=== PATIENT | male | born 1970 | race Caucasian/White ===

== ENCOUNTER 2018-12-14 08:53 | Emergency (ER) | payer BC, OTHER ==
[2018-12-14] MEDS ORDERED: Sodium Chloride 0.9% 1,000 ML IV STA (09:20)
[2018-12-14] MEDS ORDERED: Ondansetron 4 MG/2 ML SDV IVPUSH ONE (09:20)
[2018-12-14] MEDS ORDERED: Sodium Chloride 0.9% 10 ML Syringe FLUSH PRN ×2 (09:20→10:53)
[2018-12-14] MEDS ORDERED: Famotidine 20 MG/2 ML SDV IVPUSH ONE (09:22)
--- NOTE | 2018-12-14 09:54 | CR ---
Chest: Portable view of the chest was obtained. Comparison: Prior chest x-ray of 10/13/16. Heart size and mediastinum are within normal limits for portable technique. Lungs are clear with no acute parenchymal change. Nodular type density is noted within the right upper lung believed to represent slightly prominent costochondral calcification within the first rib. Impression: 1. Nothing acute is appreciated. Diagnostic code #2
[2018-12-14] MEDS ORDERED: Iopamidol 612 MG/ML 100 ML Bottle IVPUSH ONE (10:53)
[2018-12-14] MEDS ORDERED: Diatrizoate Meglumine/Diatrizoate Sodium 37% 120 ML Bottle PO ONE (10:53)
--- NOTE | 2018-12-14 11:42 | CT ---
CT abdomen and pelvis Technique: Multiple axial sections were obtained from above the dome of the diaphragm inferiorly through the pubic symphysis. Intravenous and oral contrast was utilized. Delayed images were obtained through the bladder. Comparison: No prior abdominal imaging. Findings: Multiple loops of wall thickening are seen within mid to distal small bowel. This does not involve the terminal ileum. Small portion of the visualized lung bases are clear. Adrenal glands show no nodule. Pancreas is within normal limits. Small hiatal hernia is seen. Kidneys show symmetric contrast enhancement without hydronephrosis or mass. Pancreas appears normal. Gallbladder contains no calcified gallstones. Aorta shows slight atherosclerotic change without aneurysm. No retroperitoneal adenopathy or mesenteric abnormalities are seen. No pelvic mass or adenopathy is seen. Appendix is not visualized with certainty. Bone window settings were reviewed which show mild scattered degenerative change. Delayed images show contrast within the distal ureters and bladder. Impression: 1. Multiple loops of small bowel showing wall thickening compatible with nonspecific enteritis. 2. Other incidental findings as noted above. Diagnostic code #3
[2018-12-14] MEDS ORDERED: Sodium Chloride 0.9% 1,000 ML ONE (11:53)
[2018-12-14] MEDS ORDERED: Sodium Chloride 0.9% 1,000 ML IV ONE (11:55)
--- NOTE | 2018-12-14 12:05 | EDM.PDOC ---
ED HPI GENERAL MEDICAL PROBLEM - General Chief Complaint: Abdominal Pain Stated Complaint: SOB/SEVERE STOMACH PAIN Time Seen by Provider: 12/14/18 09:20 Source of Information: Reports: Patient History Limitations: Reports: No Limitations - History of Present Illness INITIAL COMMENTS - FREE TEXT/NARRATIVE: The patient presents with generalized abdominal pain, nausea, vomiting and diarrhea. This all started about 4 days ago. He had diarrhea, vomiting and developed abdominal pain. He has not had any more bowel movements and no vomiting but he still has the severe abdominal pain. He has no fever, chills or cough. He does have some shortness of breath and he feels very weak. He has no chest pain. He still has a gallbladder. He noticed no blood in his stool or emesis. Onset: Gradual Duration: Day(s): (4) Location: Reports: Abdomen Quality: Reports: Sharp Severity: Severe Improves with: Reports: None Worsens with: Reports: None Associated Symptoms: Reports: Nausea/Vomiting, Shortness of Breath. Denies: Chest Pain, Cough, Fever/Chills, Headaches Abdominal Pain Score (Numeric/FACES): 9 - Related Data Allergies Allergy/AdvReac Type Severity Reaction Status Date / Time No Known Allergies Allergy Verified 12/14/18 09:21 Home Meds: Home Meds Azithromycin [Zithromax] 500 mg PO DAILY #6 tab 12/14/18 [Rx] Lisinopril/Hydrochlorothiazide [Lisinopril-Hctz 20-12.5 mg Tab] 12.5 - 20 mg PO DAILY 12/14/18 [History] Ondansetron [Zofran ODT] 4 mg PO Q6H PRN #20 tab.dis 12/14/18 [Rx] Past Medical History HEENT History: Reports: Impaired Vision Other HEENT History: wears eyeglasses. Cardiovascular History: Reports: Hypertension Respiratory History: Reports: Bronchitis, Recurrent Gastrointestinal History: Reports: Chronic Diarrhea, Other (See Below) Other Gastrointestinal History: has had blood in stools. Pt denies Hx of GERD, but listed on [facility] chart. Hematochezia. Musculoskeletal History: Reports: Fracture Psychiatric History: Reports: ADHD, Anxiety Hematologic History: Reports: Anemia - Infectious Disease History Infectious Disease History: Reports: Chicken Pox, Measles - Past Surgical History HEENT Surgical History: Reports: Tonsillectomy GI Surgical History: Reports: Appendectomy, Colonoscopy Musculoskeletal Surgical History: Reports: Other (See Below) Other Musculoskeletal Surgeries/Procedures:: wrist surgery. Social & Family History - Family History Family Medical History: Noncontributory - Tobacco Use Smoking Status *Q: Never Smoker Second Hand Smoke Exposure: No - Caffeine Use Caffeine Use: Reports: None - Recreational Drug Use Recreational Drug Use: No ED ROS GENERAL - Review of Systems Review Of Systems: See Below Constitutional: Reports: Malaise, Weakness, Fatigue. Denies: Fever, Chills HEENT: Reports: No Symptoms Respiratory: Reports: Shortness of Breath. Denies: Cough Cardiovascular: Reports: No Symptoms Endocrine: Reports: No Symptoms GI/Abdominal: Reports: Abdominal Pain, Diarrhea, Nausea, Vomiting : Reports: No Symptoms Musculoskeletal: Reports: No Symptoms ED EXAM, GI/ABD - Physical Exam Exam: See Below Exam Limited By: No Limitations General Appearance: Alert, No Apparent Distress Ears: Normal External Exam Nose: Normal Inspection Head: Atraumatic, Normocephalic Neck: Normal Inspection Respiratory/Chest: No Respiratory Distress, Lungs Clear, Normal Breath Sounds Cardiovascular: Regular Rate, Rhythm, No Edema, No Murmur GI/Abdominal Exam: Soft, No Organomegaly, No Mass, Tender (Moderate generalized tenderness) Course - Vital Signs Last Recorded V/S: Last Vital Signs Temp 98.1 F 12/14/18 09:05 Pulse 78 12/14/18 09:05 Resp 20 12/14/18 09:05 BP 136/97 H 12/14/18 09:05 Pulse Ox 98 12/14/18 09:05 Orthostatic Blood Pressure [ 120/94 Standing] Orthostatic Blood Pressure [ 136/98 Sitting] Orthostatic Blood Pressure [ 136/97 Supine] - Orders/Labs/Meds Orders: Active Orders 24 hr Category Date Time Status EKG Documentation Completion [RC] ASDIRECTED Care 12/14/18 10:09 Active Peripheral IV Care [RC] . DIRECTED Care 12/14/18 09:20 Active Sodium Chloride 0.9% [Saline Flush] Med 12/14/18 09:20 Active 10 ml FLUSH ASDIRECTED PRN Sodium Chloride 0.9% [Saline Flush] Med 12/14/18 10:53 Active 10 ml FLUSH ONETIME PRN ED Antiemetic Medication Reflex [OM.PC] Stat Oth 12/14/18 09:20 Ordered Peripheral IV Insertion Adult [OM.PC] Stat Oth 12/14/18 09:20 Ordered EKG 12 Lead [EK] Stat Ther 12/14/18 10:09 Ordered Medication Orders Sodium Chloride (Saline Flush) 10 ml FLUSH ASDIRECTED PRN PRN Reason: Keep Vein Open Last Admin: 12/14/18 09:10 Dose: 10 ml Sodium Chloride (Saline Flush) 10 ml FLUSH ONETIME PRN PRN Reason: IV FLUSH Last Admin: 12/14/18 10:54 Dose: 10 ml Labs: Laboratory Tests 12/14/18 12/14/18 12/14/18 Range/Units 09:10 09:10 13:20 WBC 5.77 (4.23-9.07) K/mm3 RBC 5.63 (4.63-6.08) M/mm3 Hgb 16.2 (13.7-17.5) gm/L Hct 46.7 (40.1-51.0) % MCV 82.9 (79.0-92.2) fl MCH 28.8 (25.7-32.2) pg MCHC 34.7 (32.2-35.5) g/dl RDW Std Deviation 40.6 (35.1-43.9) fL Plt Count 248 (163-337) K/mm3 MPV 10.2 (9.4-12.3) fl Neut % (Auto) 62.4 (34.0-67.9) % Lymph % (Auto) 14.4 L (21.8-53.1) % [place] % (Auto) 21.3 H (5.3-12.2) % Eos % (Auto) 1.4 (0.8-7.0) Baso % (Auto) 0.2 (0.1-1.2) % Neut # (Auto) 3.60 (1.78-5.38) K/mm3 Lymph # (Auto) 0.83 L (1.32-3.57) K/mm3 [place] # (Auto) 1.23 H (0.30-0.82) K/mm3 Eos # (Auto) 0.08 (0.04-0.54) K/mm3 Baso # (Auto) 0.01 (0.01-0.08) K/mm3 Manual Slide Review Abnormal smear Sodium 134 L (136-145) mEq/L Potassium 3.6 (3.5-5.1) mEq/L Chloride 98 (98-107) mEq/L Carbon Dioxide 27 (21-32) mEq/L Anion Gap 12.6 (5-15) BUN 25 H (7-18) mg/dL Creatinine 1.1 (0.7-1.3) mg/dL Est Cr Clr Drug Dosing 86.52 mL/min Estimated GFR (MDRD) > 60 (>60) mL/min BUN/Creatinine Ratio 22.7 H (14-18) Glucose 105 (74-106) mg/dL Calcium 8.7 (8.5-10.1) mg/dL Total Bilirubin 0.5 (0.2-1.0) mg/dL AST 17 (15-37) U/L ALT 20 (16-63) U/L Alkaline Phosphatase 79 (46-116) U/L Troponin I < 0.017 (0.00-0.056) ng/mL Total Protein 7.7 (6.4-8.2) g/dl Albumin 3.3 L (3.4-5.0) g/dl Globulin 4.4 gm/dL Albumin/Globulin Ratio 0.8 L (1-2) Lipase 162 (73-393) U/L Urine Color Yellow (Yellow) Urine Appearance Clear (Clear) Urine pH 6.5 (5.0-8.0) Ur Specific [place] 1.010 (1.005-1.030) Urine Protein Negative (Negative) Urine Glucose (UA) Negative (Negative) Urine Ketones 2+ H (Negative) Urine Occult Blood Trace-intact H (Negative) Urine Nitrite Negative (Negative) Urine Bilirubin Negative (Negative) Urine Urobilinogen 0.2 (0.2-1.0) Ur Leukocyte Esterase Negative (Negative) Urine RBC 0-5 (0-5) /hpf Urine WBC Not seen (0-5) /hpf Ur Epithelial Cells Not seen (0-5) /hpf Urine Bacteria Rare (FEW) /hpf Urine Mucus Not seen (FEW) /hpf Meds: Medications Generic Name Dose Route Start Last Admin Trade Name Freq PRN Reason Stop Dose Admin Sodium Chloride 10 ml 12/14/18 09:20 12/14/18 09:10 Saline Flush FLUSH 10 ml ASDIRECTED PRN Administration Keep Vein Open Sodium Chloride 10 ml 12/14/18 10:53 12/14/18 10:54 Saline Flush FLUSH 10 ml ONETIME PRN Administration IV FLUSH Discontinued Medications Generic Name Dose Route Start Last Admin Trade Name Matthew PRN Reason Stop Dose Admin Diatrizoate Meglum/Diatrizoate Sod 120 ml 12/14/18 10:53 12/14/18 10:54 Gastrografin 37% PO 12/14/18 10:54 90 ml ONETIME ONE Administration Famotidine 20 mg 12/14/18 09:22 12/14/18 09:32 Pepcid IVPUSH 12/14/18 09:23 20 mg ONETIME ONE Administration Sodium Chloride 1,000 mls @ 1,000 mls/hr 12/14/18 09:20 12/14/18 09:29 Normal Saline IV 12/14/18 10:19 1,000 mls/hr .BOLUS STA Administration Sodium Chloride 1,000 mls @ 1,000 mls/hr 12/14/18 11:55 12/14/18 11:55 Normal Saline IV 12/14/18 12:54 1,000 mls/hr ONETIME ONE Administration Sodium Chloride Confirm 12/14/18 11:53 12/14/18 11:57 Normal Saline Administered 12/14/18 11:54 Not Given Dose 1,000 mls @ as directed .ROUTE .STK-MED ONE Iopamidol 100 ml 12/14/18 10:53 12/14/18 10:54 Isovue-300 (61%) IVPUSH 12/14/18 10:54 100 ml ONETIME ONE Administration Ondansetron HCl 4 mg 12/14/18 09:20 12/14/18 09:27 Zofran IVPUSH 12/14/18 09:21 4 mg ONETIME ONE Administration - Re-Assessments/Exams Free Text/Narrative Re-Assessment/Exam: 12/14/18 12:01 I ordered an IV NS 1L bolus, zofran 4mg IV, labs, pepcid 20mg IV, UA and a CT of his abdomen and pelvis with IV and oral contrast. 12/14/18 12:02 His CBC looks good. His Na was a little low at 134. His troponin was negative. His lipase was normal. His CT shows multiple loops of small bowel showing wall thickening compatible with nonspecific enteritis. Other incidental findings. His CXR shows nothing acute. The patient did not want anything for pain. I have ordered another liter of fluid. 12/14/18 14:17 His UA looks good. He was able to keep down some jello. I will get him on some zithromax and zofran. The patient did not want anything for pain. 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 Take the zithromax 2 pills for 3 days. Take zofran 4mg every 6 hours as needed for nausea or vomiting. Take tylenol or motrin for any pain. - My Orders Last 24 Hours: My Active Orders 12/14/18 09:20 Peripheral IV Care [RC] . DIRECTED Sodium Chloride 0.9% [Saline Flush] 10 ml FLUSH ASDIRECTED PRN ED Antiemetic Medication Reflex [OM.PC] Stat Peripheral IV Insertion Adult [OM.PC] Stat 12/14/18 10:09 EKG Documentation Completion [RC] ASDIRECTED EKG 12 Lead [EK] Stat 12/14/18 10:53 Sodium Chloride 0.9% [Saline Flush] 10 ml FLUSH ONETIME PRN - Assessment/Plan Last 24 Hours: My Active Orders 12/14/18 09:20 Peripheral IV Care [RC] . DIRECTED Sodium Chloride 0.9% [Saline Flush] 10 ml FLUSH ASDIRECTED PRN ED Antiemetic Medication Reflex [OM.PC] Stat Peripheral IV Insertion Adult [OM.PC] Stat 12/14/18 10:09 EKG Documentation Completion [RC] ASDIRECTED EKG 12 Lead [EK] Stat 12/14/18 10:53 Sodium Chloride 0.9% [Saline Flush] 10 ml FLUSH ONETIME PRN
[2018-12-14 14:58] VITALS: BP 122/86
== END 2018-12-14 14:50 | disposition home or self-care (01) ==
LOC: JD.ED 08:53
DX: K52.9 Noninfective gastroenteritis and colitis, unspecified (principal); I10 Essential (primary) hypertension
CPT/HCPCS: 36415; 71045; 74177; 80053; 81001; 83690; 84484; 85025; 87046; 87493; 89055; 93005; 96361; 96374; 96375; 99284; J2405; J3490; J7040; Q9963; Q9967; 87427; 93010

== ENCOUNTER 2021-09-21 09:40 | Emergency (ER) | payer SELFPAY ==
[2021-09-21 09:52] VITALS: BP 113/87; PULSE 70
[2021-09-21] MEDS ORDERED: Ketorolac 30 MG/ML SDV IVPUSH ONE (10:05)
[2021-09-21] MEDS ORDERED: Sodium Chloride 0.9% 10 ML Syringe FLUSH PRN (10:05)
--- NOTE | 2021-09-21 10:34 | CR ---
Chest: Portable view of the chest was obtained. Comparison: Prior chest x-ray of 12/14/17. Heart size and mediastinum are normal. Lungs are clear with no acute parenchymal change. Mild scattered degenerative change is seen within the spine. Slight inferior spurring is noted within the acromioclavicular joints. Impression: 1. Incidental findings. 2. Nothing acute is seen on portable chest x-ray. Diagnostic code #2
--- NOTE | 2021-09-21 10:35 | EDM.PDOC ---
ED HPI GENERAL MEDICAL PROBLEM - General Chief Complaint: Chest Pain Stated Complaint: CHEST PAINS Time Seen by Provider: 09/21/21 09:52 Source of Information: Reports: Patient History Limitations: Reports: No Limitations - History of Present Illness INITIAL COMMENTS - FREE TEXT/NARRATIVE: 51-year-old male presents the emergency department today with a 1 month history of right chest and right shoulder discomfort as well as right scapular discomfort. Patient states that has progressively getting worse over the last month. 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 He states at that time they recommended he start taking in 81 mg baby aspirin a day. He states he has been doing that and it has not helped. States he does have a history of hypertension for which he takes lisinopril/HCTZ however he does not have a primary care provider in the area. States [facility] and had his prescription renewed. He states he does not have a primary care provider at this time due to the fact that he does not have insurance. States that the pain progressively got worse this morning and he went to the walk-in clinic at [place] and was directed to come to the emergency department for further evaluation. Patient states he did take some ibuprofen this morning which has not seem to help. Denies smoking or alcohol history. 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 Cardiovascular History: Reports: Hypertension Respiratory History: Reports: Bronchitis, Recurrent Gastrointestinal History: Reports: Chronic Diarrhea Other Gastrointestinal History: has had blood in stools. Pt denies Hx of GERD, but listed on [facility] chart. Hematochezia. Musculoskeletal History: Reports: Fracture Psychiatric History: Reports: ADHD, Anxiety Hematologic History: Reports: Anemia - Infectious Disease History Infectious Disease History: Reports: Chicken Pox, Measles - Past Surgical History HEENT Surgical History: Reports: Tonsillectomy GI Surgical History: Reports: Appendectomy, Colonoscopy Musculoskeletal Surgical History: Reports: ORIF Social & Family History - Family History Family Medical History: No Pertinent Family History - Tobacco Use Tobacco Use Status *Q: Never Tobacco User - Caffeine Use Caffeine Use: Reports: None ED ROS GENERAL - Review of Systems Review Of Systems: Comprehensive ROS is negative, except as noted in HPI. ED EXAM, GENERAL - Physical Exam Exam: See Below Exam Limited By: No Limitations General Appearance: Alert, WD/WN, Mild Distress Ears: Normal External Exam, Hearing Grossly Normal Nose: Normal Inspection Throat/Mouth: Normal Inspection, Normal Lips, Normal Voice, No Airway Compromise Head: Atraumatic, Normocephalic Neck: Normal Inspection, Supple, Tender Lateral (Significant tenderness noted with light palpation to the right trapezius and platysma muscles.) Respiratory/Chest: No Respiratory Distress, Lungs Clear, Normal Breath Sounds, No Accessory Muscle Use, Chest Non-Tender Cardiovascular: Normal Peripheral Pulses, Regular Rate, Rhythm, No Edema, No Murmur Peripheral Pulses: 2+: Radial (L), Radial (R) GI/Abdominal: Normal Bowel Sounds, Soft, Non-Tender, No Distention (Male) Exam: Deferred Rectal (Males) Exam: Deferred Back Exam: Normal Inspection, Full Range of Motion, Other (Significant tenderness noted to the right scapular area) Extremities: Normal Inspection, Normal Range of Motion, Non-Tender, No Pedal Edema, Normal Capillary Refill Neurological: Alert, Oriented, Normal Cognition Psychiatric: Normal Affect, Normal Mood Skin Exam: Warm, Dry, Intact, Normal Color, No Rash Lymphatic: No Adenopathy #1 Interpretation EKG Date: 09/21/21 Time: 09:44 Rhythm: NSR Rate (Beats/Min): 77 [place]: Normal P-Wave: Present QRS: Normal ST-T: Normal QT: Normal Comparison: NA - No Prior EKG EKG Interpretation Comments: Per Dr. Henry interpretation: Sinus rhythm at 77 bpm; decreased voltage limb leads; otherwise normal EKG Course - Vital Signs Text/Narrative:: As stated above, patient presents with a 1 month history of right scapular, shoulder, and right pectoralis chest discomfort which has been worsening. Patient is hemodynamically stable at the time of my exam. He denies any cough or shortness of breath. Lungs are clear and heart rate is regular with no murmurs. Patient verbalizes significant discomfort with light palpation to the right pectoralis area up into the right neck and right scapular area. He states that when he raises his right arm above his head he experiences significant right pectoralis discomfort. Will obtain a full cardiac work-up to include a EKG, chest x-ray and lab studies. We will also medicate the patient with Toradol 30 mg IV. Last Recorded V/S: Last Vital Signs Temp 97.9 F 09/21/21 09:47 Pulse 70 09/21/21 09:47 Resp 15 09/21/21 09:47 BP 113/87 09/21/21 09:47 Pulse Ox 97 09/21/21 09:47 - Orders/Labs/Meds Orders: Active Orders 24 hr Category Date Time Status Sodium Chloride 0.9% [Saline Flush] Med 09/21/21 10:05 Active 10 ml FLUSH ASDIRECTED PRN Saline Lock Insert [OM.PC] Stat Oth 09/21/21 10:05 Ordered Medication Orders Sodium Chloride (Sodium Chloride 0.9% 10 Ml Syringe) 10 ml FLUSH ASDIRECTED PRN PRN Reason: Keep Vein Open Last Admin: 09/21/21 10:29 Dose: 10 ml Documented by: CARLOS Labs: Laboratory Tests 09/21/21 09/21/21 09/21/21 Range/Units 10:23 10:23 10:23 WBC 6.11 (4.23-9.07) K/mm3 RBC 4.59 L (4.63-6.08) M/mm3 Hgb 13.7 D (13.7-17.5) gm/dl Hct 40.8 (40.1-51.0) % MCV 88.9 D (79.0-92.2) fl MCH 29.8 (25.7-32.2) pg MCHC 33.6 (32.2-35.5) g/dl RDW Std Deviation 41.9 (35.1-43.9) fL Plt Count 262 (163-337) K/mm3 MPV 10.1 (9.4-12.3) fl Neut % (Auto) 64.9 (34.0-67.9) % Lymph % (Auto) 22.4 (21.8-53.1) % [place] % (Auto) 10.6 (5.3-12.2) % Eos % (Auto) 1.6 (0.8-7.0) Baso % (Auto) 0.3 (0.1-1.2) % Neut # (Auto) 3.96 (1.78-5.38) K/mm3 Lymph # (Auto) 1.37 (1.32-3.57) K/mm3 Delta # (Auto) 0.65 (0.30-0.82) K/mm3 Eos # (Auto) 0.10 (0.04-0.54) K/mm3 Baso # (Auto) 0.02 (0.01-0.08) K/mm3 D-Dimer, Quantitative < 0.19 L (0.19-0.50) mg/L Sodium 138 (136-145) mEq/L Potassium 4.2 (3.5-5.1) mEq/L Chloride 102 (98-107) mEq/L Carbon Dioxide 30 (21-32) mEq/L Anion Gap 10.2 (5-15) BUN 28 H (7-18) mg/dL Creatinine 1.1 (0.7-1.3) mg/dL Est Cr Clr Drug Dosing 83.67 mL/min Estimated GFR (MDRD) > 60 (>60) mL/min BUN/Creatinine Ratio 25.5 H (14-18) Glucose 97 (70-99) mg/dL Calcium 9.1 (8.5-10.1) mg/dL Magnesium 1.9 (1.8-2.4) mg/dL Total Bilirubin 0.3 (0.2-1.0) mg/dL AST 11 L (15-37) U/L ALT 21 (16-63) U/L Alkaline Phosphatase 84 (46-116) U/L Troponin I < 0.017 (0.00-0.056) ng/mL C-Reactive Protein <0.2 (<1.0) mg/dL Total Protein 7.2 (6.4-8.2) g/dl Albumin 3.8 (3.4-5.0) g/dl Globulin 3.4 gm/dL Albumin/Globulin Ratio 1.1 (1-2) Meds: Medications Generic Name Dose Route Start Last Admin Trade Name Freq PRN Reason Stop Dose Admin Sodium Chloride 10 ml 09/21/21 10:05 09/21/21 10:29 Sodium Chloride 0.9% 10 Ml Syringe FLUSH 10 ml ASDIRECTED PRN Administration Keep Vein Open Discontinued Medications Generic Name Dose Route Start Last Admin Trade Name Matthew PRN Reason Stop Dose Admin Ketorolac Tromethamine 30 mg 09/21/21 10:05 09/21/21 10:20 Ketorolac 30 Mg/Ml Sdv IVPUSH 09/21/21 10:06 30 mg ONETIME ONE Administration - Re-Assessments/Exams Free Text/Narrative Re-Assessment/Exam: 09/21/21 10:51 Radiologist impression portable view of the chest: Heart size and mediastinum are normal. Lungs are clear with no acute parenchymal change. Mild scattered degenerative changes seen within the spine. Slight inferior spurring is noted within the acromioclavicular joints. Impression: 1. Incidental findings. 2. Nothing acute is seen on portable chest x-ray. 09/21/21 11:40 Hematology is unremarkable Coagulation reveals a D-dimer of less than 0.19 Chemistry reveals a BUN of 28, creatinine 1.1, GFR greater than 60, glucose 97, magnesium 1.9, troponin less than 0.017, C-reactive protein less than 0.2 Discussed the results with the patient. At this time strongly feel this is musculoskeletal in origin. Patient states he did get some relief from the Toradol he received. He will be discharged to home. Departure - Departure Time of Disposition: 11:40 Disposition: Home, Self-Care 01 Condition: Good Clinical Impression: Atypical chest pain Forms: ED Department Discharge Additional Instructions: You were seen in the emergency department today with complaints of right-sided chest discomfort as well as neck pain and right shoulder discomfort. Full cardiac work-up was completed to include an EKG, chest x-ray and lab studies. These were all unremarkable. You are not having a heart attack. Strongly suspect that your discomfort is musculoskeletal in origin, as you did state you got some relief from the IV Toradol that you received. Recommend that you alternate Tylenol 650 mg with ibuprofen 600 mg every 4 hours for the next couple of days. Recommend using ice 30 minutes at a time every 3 hours while awake to the area for the next 48 hours and then may use heat. Also could try massage therapy to see if this would help. Should your condition worsen or change, do not hesitate returning to the emergency department. Sepsis Event Note (ED) - Evaluation Sepsis Screening Result: No Definite Risk - Focused Exam Vital Signs: Vital Signs Temp Pulse Resp BP Pulse Ox 09/21/21 09:47 97.9 F 70 15 113/87 97 - My Orders Last 24 Hours: My Active Orders 09/21/21 10:05 Sodium Chloride 0.9% [Saline Flush] 10 ml FLUSH ASDIRECTED PRN Saline Lock Insert [OM.PC] Stat - Assessment/Plan Last 24 Hours: My Active Orders 09/21/21 10:05 Sodium Chloride 0.9% [Saline Flush] 10 ml FLUSH ASDIRECTED PRN Saline Lock Insert [OM.PC] Stat
== END 2021-09-21 12:10 | disposition home or self-care (01) ==
LOC: JD.ED 09:40
DX: R07.89 Other chest pain (principal); I10 Essential (primary) hypertension; Z79.899 Other long term (current) drug therapy
CPT/HCPCS: 36415; 71045; 80053; 83735; 84484; 85025; 85379; 86140; 96374; 99285; J1885

== ENCOUNTER 2022-01-04 16:13 | Emergency (ER) | payer OTHER ==
[2022-01-04 16:55] VITALS: BP 122/76; PULSE 72
== END 2022-01-04 19:01 | disposition home or self-care (01) ==
LOC: JD.ED 16:13
DX: K92.1 Melena (principal); I10 Essential (primary) hypertension; Z79.899 Other long term (current) drug therapy
CPT/HCPCS: 36415; 80053; 83690; 85025; 85610; 99283; 99284